=== PATIENT | male | born 1990 | race Caucasian/White ===

== ENCOUNTER 2024-04-17 19:54 | Inpatient (IN) | payer BC ==
[2024-04-17 20:18] VITALS: BMI 40.6
[2024-04-17] MEDS ORDERED: MAG HYDROX/AL HYDROX/SIMETH 30 ML UNIT-DOSE CUP PO PRN (20:49)
[2024-04-17] MEDS ORDERED: P-EPHED 60MG/TRIPROLIDI 2.5MG TABLET PO PRN (20:49)
[2024-04-17] MEDS ORDERED: POLYETHYLENE GLYCOL (HEALTHYLAX) 3350 17 GM PACKET PO PRN (20:49)
[2024-04-17] MEDS ORDERED: BENZONATATE 200 MG CAPSULE PO PRN (20:49)
[2024-04-17] MEDS ORDERED: NICOTINE POLACRILEX 2 MG LOZENGE BC PRN (20:49)
[2024-04-17] MEDS ORDERED: guaiFENesin 600 MG TABLET.ER (FP) PO PRN (20:49)
[2024-04-17] MEDS ORDERED: BISMUTH SUBSALICYLATE 524 MG/30 ML PO PRN (20:49)
[2024-04-17] MEDS ORDERED: LOPERAMIDE HCL 2 MG CAPSULE PO PRN (20:49)
[2024-04-17] MEDS ORDERED: NALOXONE HCL 0.4 MG/ML VIAL IM PRN (20:49)
[2024-04-17] MEDS ORDERED: NALOXONE HCL (KLOXXADO) 8 MG SPRAY NS PRN (20:49)
[2024-04-17] MEDS ORDERED: BENZOCAINE/MENTHOL (CHLORASEPTIC ) LOZENGE MM PRN (20:49)
[2024-04-17] MEDS ORDERED: MAGNESIUM HYDROX 2400MG/30ML ORAL SUSPENSION 30 ML CUP PO PRN (20:49)
[2024-04-17] MEDS ORDERED: DICYCLOMINE HCL 10 MG CAPSULE PO PRN (20:49)
[2024-04-17] MEDS ORDERED: IBUPROFEN 400 MG TABLET (FP) PO PRN (20:49)
[2024-04-17] MEDS ORDERED: NICOTINE POLACRILEX 2 MG GUM BUC PRN (20:49)
[2024-04-17] MEDS ORDERED: methaDONE HCL 10 MG TABLET (FOR DETOX USE ONLY) ONE (21:05)
[2024-04-17] MEDS ORDERED: diazePAM 5 MG TABLET ONE (21:05)
[2024-04-17] MEDS ORDERED: ONDANSETRON *ODT* 4 MG TABLET ONE (21:05)
[2024-04-17] MEDS: ONDANSETRON *ODT* 4 MG TABLET SL PRN (21:08)
[2024-04-17] MEDS: diazePAM 5 MG TABLET PO ONE (21:27)
[2024-04-17] MEDS: methaDONE HCL 10 MG TABLET (FOR DETOX USE ONLY) PO ONE (21:27)
[2024-04-17] MEDS: levETIRAcetam 500 MG TABLET (FP) PO SCH (22:17)
[2024-04-17] MEDS: diazePAM 5 MG TABLET PO SCH (22:40)
[2024-04-17] MEDS: MELATONIN 5 MG TABLETS PO SCH (22:40)
[2024-04-17] MEDS: THIAMINE 100 MG TABLET PO SCH (22:40)
[2024-04-18] MEDS: METHOCARBAMOL 500 MG TABLET PO PRN (09:44)
[2024-04-18] MEDS: cloNIDine HCL 0.1 MG TABLET PO PRN (09:44)
[2024-04-18] MEDS: PRENATAL VITAMINS W/ FOLIC ACID TABLET (FP) PO SCH (09:46)
[2024-04-18] MEDS: LIDOCAINE VISCOUS 2% ORAL/TOP 15 ML UNIT-DOSE CUP MM SCH (14:04)
[2024-04-18] MEDS: IBUPROFEN 600 MG TABLET (FP) PO PRN (17:01)
[2024-04-18] MEDS: ACETAMINOPHEN 325 MG TABLET (FP) PO PRN (18:19)
[2024-04-18] MEDS: METHOCARBAMOL 500 MG TABLET PO ONE (19:39)
[2024-04-18] MEDS ORDERED: hydrOXYzine PAMOATE 50 MG CAPSULE (FP) PO PRN (19:59)
[2024-04-18] MEDS: GABAPENTIN 300 MG CAPSULE PO ONE (20:00)
[2024-04-18] MEDS: diazePAM 5 MG TABLET PO PRN (20:01)
[2024-04-18] MEDS: GABAPENTIN 300 MG CAPSULE PO SCH (22:57)
[2024-04-18] MEDS: MELATONIN 5 MG TABLETS PO SCH (22:57)
[2024-04-19] MEDS: diazePAM 5 MG TABLET PO SCH (05:09)
[2024-04-19] MEDS: METHOCARBAMOL 500 MG TABLET PO PRN (09:04)
[2024-04-19] MEDS: methaDONE HCL 10 MG TABLET (FOR DETOX USE ONLY) PO ONE (09:05)
[2024-04-19 09:19] VITALS: BP 154/86; PULSE 77; RESP 20; TEMP 97.3
[2024-04-20] MEDS ORDERED: diazePAM 5 MG TABLET PO SCH (06:00)
[2024-04-21] MEDS ORDERED: diazePAM 5 MG TABLET PO ONE (06:00)
[2024-04-21] MEDS ORDERED: methaDONE HCL 10 MG TABLET (FOR DETOX USE ONLY) PO ONE (10:00)
== END 2024-04-19 09:36 | disposition left against medical advice (07) | DRG 770 ==
LOC: YASAS 19:54 → Y3N 22:08
PROVIDERS: ADMIT Allergy & Immunology; ATTEND Surgery
PROC: HZ2ZZZZ Detoxification Services for Substance Abuse Treatment (ICD-10-PCS; principal; 2024-04-17)
DX: F11.23 Opioid dependence with withdrawal (principal); F13.230 Sedative, hypnotic or anxiolytic dependence with withdrawal, uncomplicated; F10.20 Alcohol dependence, uncomplicated; F17.210 Nicotine dependence, cigarettes, uncomplicated; F41.9 Anxiety disorder, unspecified; Z62.810 Personal history of physical and sexual abuse in childhood
CPT/HCPCS: 80305; 93005; 93010; Q0162